=== PATIENT | female | born 1970 | race Caucasian/White ===

== ENCOUNTER 2017-09-16 15:59 | Emergency (ER) | payer MEDICARE, OTHER ==
[~2017-09-16] VITALS: Ht 157.5 cm; Wt 107.0 kg
[2017-09-16] MEDS ORDERED: DEXTROSE 50%, 50ML SYRINGE ONE (16:09)
[2017-09-16] MEDS ORDERED: ZOLP5TAB6 PO (16:28)
[2017-09-16] MEDS ORDERED: AMLO10TA2 PO (16:28)
[2017-09-16] MEDS ORDERED: GABA300C10 PO (16:28)
[2017-09-16] MEDS ORDERED: INSU100I13 SQ (16:28)
[2017-09-16] MEDS ORDERED: OMEP-110 PO (16:28)
[2017-09-16] MEDS ORDERED: ATOR40TA78 PO (16:28)
[2017-09-16] MEDS ORDERED: METO200T47 PO (16:28)
[2017-09-16] MEDS ORDERED: WARF1TAB74 PO (16:28)
[2017-09-16] MEDS ORDERED: MIRT7.5T8 PO (16:28)
[2017-09-16] MEDS ORDERED: SERT100T5 PO (16:28)
[2017-09-16] MEDS ORDERED: INSU100C SQ-INSULIN (16:28)
[2017-09-16] MEDS ORDERED: FURO40TA6 PO (16:28)
[2017-09-16] MEDS ORDERED: DEXTROSE 50%, 50ML SYRINGE IVPush ONE (16:30)
[2017-09-16 16:37] LABS: ALBUMIN 2.4 g/dL (3.4-5.0); ANION GAP 12 mmol/L (5-15); CALCIUM 8.6 mg/dL (8.5-10.1); CHLORIDE 105 mmol/L (98-107); CREATININE 1.99 mg/dL (0.55-1.02)
[2017-09-16 16:38] LABS: BASOPHILS # (AUTO) 0.04 x10^3/uL (0-0.1); BASOPHILS % (AUTO) 0 % (0-1); EOSINOPHILS # (AUTO) 0.14 x10^3/uL (0-0.4); EOSINOPHILS % (AUTO) 1 % (1-7); LYMPHOCYTES # (AUTO) 3.58 x10^3/uL (1-3.4); LYMPHOCYTES % (AUTO) 28 % (22-44); MD NO; MEAN CORPUSCULAR HEMOGLOBIN 28.2 pg (27.0-34.8); MEAN CORPUSCULAR HGB CONC 32.1 g/dL (32.4-35.8); MEAN CORPUSCULAR VOLUME 87.7 fL (80-100); MEAN PLATELET VOLUME 9.8 fL (7.4-10.4); MONOCYTES # (AUTO) 0.93 x10^3/uL (0.2-0.8); MONOCYTES % (AUTO) 7 % (2-9); NEUTROPHILS # (AUTO) 8.22 x10^3/uL (1.8-6.8); NEUTROPHILS % (AUTO) 64 % (42-75); PLATELET COUNT 426 x10^3/uL (130-400); RED BLOOD COUNT 4.43 x10^6/uL (3.82-5.3); RED CELL DISTRIBUTION WIDTH 16.6 % (9.6-15.2)
[2017-09-16 17:30] VITALS: BP 142/74
== END 2017-09-16 17:58 | disposition home or self-care (01) ==
LOC: ED 17:10
DX: E11.641 Type 2 diabetes mellitus with hypoglycemia with coma (principal); N18.2 Chronic kidney disease, stage 2 (mild)
CPT/HCPCS: 36415; 80048; 82040; 85025; 93005; 96374